=== PATIENT | female | born 1965 | race Caucasian/White ===

== ENCOUNTER 2018-01-20 14:57 | Emergency (ER) | payer SELFPAY ==
[2018-01-20] MEDS ORDERED: NORMAL SALINE 1000 ML 1,000 ML IV ONE (15:34)
[2018-01-20] MEDS ORDERED: IPRATROPIUM/ALBUTEROL 0.5-2.5 MG/3 ML AMPUL NEB ONE (15:35)
--- NOTE | 2018-01-20 15:36 | ER Document Report ---
ED Medical Screen (RME) - General Chief Complaint: Shortness Of Breath Stated Complaint: COUGH,DIARRHEA Time Seen by Provider: 01/20/18 15:34 Mode of Arrival: Wheelchair Information source: Patient, Relative TRAVEL OUTSIDE OF THE [place] IN LAST 30 DAYS: No - HPI Patient complains to provider of: coough, dehydration Onset: Yesterday - pt with onset of cough and diarrhea yessterday -- went to health clinic earlier today and sent here for low O2 saturations. Denies CP - Related Data Allergies/Adverse Reactions: acetaminophen [From Percocet] Allergy (Verified 01/20/18 15:04) adhesive tape Allergy (Verified 01/20/18 15:04) amoxicillin [From Augmentin] Allergy (Verified 01/20/18 15:04) aspirin Allergy (Verified 01/20/18 15:04) clavulanic acid [From Augmentin] Allergy (Verified 01/20/18 15:04) diazepam [From Valium] Allergy (Verified 01/20/18 15:04) iodine Allergy (Verified 01/20/18 15:04) latex Allergy (Verified 01/20/18 15:04) levofloxacin [From Levaquin] Allergy (Verified 01/20/18 15:04) midazolam [From Versed] Allergy (Verified 01/20/18 15:04) nitrofurantoin [From Macrobid] Allergy (Verified 01/20/18 15:04) oxycodone [From Percocet] Allergy (Verified 01/20/18 15:04) procaine [From Novocain] Allergy (Verified 01/20/18 15:04) promethazine [From Phenergan] Allergy (Verified 01/20/18 15:04) shellfish derived Allergy (Verified 01/20/18 15:04) Sulfa (Sulfonamide Antibiotics) Allergy (Verified 01/20/18 15:04) Physical Exam - Vital signs Vitals: Temp Pulse Resp BP Pulse Ox 97.8 F 86 20 130/63 H 88 L 01/20/18 15:06 01/20/18 15:06 01/20/18 15:06 01/20/18 15:06 01/20/18 15:06 Course - Vital Signs Vital signs: Temp Pulse Resp BP Pulse Ox 97.8 F 86 20 130/63 H 88 L 01/20/18 15:06 01/20/18 15:06 01/20/18 15:06 01/20/18 15:06 01/20/18 15:06
[2018-01-20 16:17] LABS: ABSOLUTE BASOPHILS # (AUTO) 0.1 10^3/uL (0.0-0.2); ABSOLUTE LYMPHOCYTES (AUTO) 2.3 10^3/uL (0.5-4.7); ABSOLUTE NEUT (AUTO) 7.7 10^3/uL (1.7-8.2); BASOPHILS % (AUTO) 0.6 % (0-2); EOSINOPHILS % (AUTO) 0.3 % (0-6); HEMATOCRIT 44.7 % (36.0-47.0); HEMOGLOBIN 15.3 g/dL (12.0-15.5); LYMPHOCYTES % (AUTO) 20.3 % (13-45); MEAN CORPUSCULAR HEMOGLOBIN 30.4 pg (27.0-33.4); MEAN CORPUSCULAR HGB CONC 34.3 g/dL (32.0-36.0); MEAN CORPUSCULAR VOLUME 88 fl (80-97); MONOCYTES % (AUTO) 8.8 % (3-13); PLATELET COUNT 294 10^3/uL (150-450); RED BLOOD COUNT 5.05 10^6/uL (3.72-5.28); RED CELL DISTRIBUTION WIDTH 13.4 % (11.5-14.0); TOTAL CELLS COUNTED % (AUTO) 100 %; WHITE BLOOD COUNT 11.1 10^3/uL (4.0-10.5)
[2018-01-20 16:29] LABS: ALANINE AMINOTRANSFERASE 11 U/L (9-52); ALBUMIN 4.3 g/dL (3.5-5.0); ALKALINE PHOSPHATASE 109 U/L (38-126); ANION GAP 12 (5-19); ASPARTATE AMINO TRANSFERASE 24 U/L (14-36); BILIRUBIN,DIRECT 0.3 mg/dL (0.0-0.4); BILIRUBIN,TOTAL 0.7 mg/dL (0.2-1.3); BLOOD UREA NITROGEN 5 mg/dL (7-20); CALCIUM 9.9 mg/dL (8.4-10.2); CARBON DIOXIDE 28 mmol/L (22-30); CHLORIDE 104 mmol/L (98-107); GLUCOSE 115 mg/dL (75-110); POTASSIUM 3.4 mmol/L (3.6-5.0); SODIUM 143.6 mmol/L (137-145)
--- NOTE | 2018-01-20 16:50 | RADIOLOGY REPORT (SQ) ---
EXAM DESCRIPTION: CHEST 2 VIEWS COMPLETED DATE/TIME: 01/20/2018 4:36 pm REASON FOR STUDY: SOB COMPARISON: None. EXAM PARAMETERS: NUMBER OF VIEWS: two views TECHNIQUE: Digital Frontal and Lateral radiographic views of the chest acquired. RADIATION DOSE: NA LIMITATIONS: none FINDINGS: LUNGS AND PLEURA: No opacities, masses or pneumothorax. No pleural effusion. MEDIASTINUM AND HILAR STRUCTURES: No masses or contour abnormalities. HEART AND VASCULAR STRUCTURES: Heart normal size. No evidence for failure. BONES: No acute findings. HARDWARE: None in the chest. OTHER: No other significant finding. IMPRESSION: NO ACUTE RADIOGRAPHIC FINDING IN THE CHEST. TECHNICAL DOCUMENTATION: JOB ID: [id number] [id number] [employer]- All Rights Reserved Reading location - IP/workstation name: [employer]
[2018-01-20] MEDS ORDERED: BENZONATATE 100 MG CAPSULE PO ONE (17:12)
[2018-01-20] MEDS ORDERED: ALBUTEROL SULFATE 0.083% NEB 2.5 MG/3 ML AMPUL NEB ONE (17:13)
[2018-01-20 17:18] LABS: LIPASE 34.3 U/L (23-300)
[2018-01-20 17:57] LABS: INTERNATIONAL RATION (INR) 0.94
[2018-01-20 17:58] LABS: PARTIAL THROMBOPLASTIN TIME 31.4 SEC (23.5-35.8)
[2018-01-20 18:23] LABS: D-DIMER < 0.27 ug/mL (0.00-0.50)
[2018-01-20] MEDS ORDERED: ALBUTEROL SULFATE HFA (90 MCG/PUFF) 8 GM MDI (1 MDI/ER DISP) IH ONE (18:47)
[2018-01-20] MEDS ORDERED: DOXYCYCLINE HYCLATE 100 MG TABLET PO ONE (18:47)
--- NOTE | 2018-01-20 18:52 | ER Document Report ---
ED General - General Chief Complaint: Shortness Of Breath Stated Complaint: COUGH,DIARRHEA Time Seen by Provider: 01/20/18 15:34 Mode of Arrival: Wheelchair TRAVEL OUTSIDE OF THE [place] IN LAST 30 DAYS: No - HPI Patient complains to provider of: Shortness of breath diarrhea Notes: Patient with recent travel from [place] to the area states cough feeling unwell diarrhea ongoing for the last 8 days. Patient denies any fevers or chills. Patient does have a history of smoking states that not smoking for the last 3 days. Patient states she has been smoking ever since she was 14. No formal diagnosis of COPD however states whenever she has this flare she normally receives antibiotics Tessalon Perles for her symptoms patient states she is allergic to multiple medications including steroids denies any history of DVT PE in the past. Denies any calf pain denies any leg pain at this time. Patient states clear sputum production. Patient was sent to the ER from a local urgent care because of a pulse ox reading of 88. Patient otherwise is returning from the bathroom upon my evaluation we are able to look the patient up to the SPO2 monitor which reads 90 with no oxygen. - Related Data Allergies/Adverse Reactions: adhesive tape Allergy (Verified 01/20/18 15:04) amoxicillin [From Augmentin] Allergy (Verified 01/20/18 15:04) aspirin Allergy (Verified 01/20/18 15:04) clavulanic acid [From Augmentin] Allergy (Verified 01/20/18 15:04) diazepam [From Valium] Allergy (Verified 01/20/18 15:04) iodine Allergy (Verified 01/20/18 15:04) latex Allergy (Verified 01/20/18 15:04) levofloxacin [From Levaquin] Allergy (Verified 01/20/18 15:04) midazolam [From Versed] Allergy (Verified 01/20/18 15:04) nitrofurantoin [From Macrobid] Allergy (Verified 01/20/18 15:04) oxycodone [From Percocet] Allergy (Verified 01/20/18 15:04) procaine [From Novocain] Allergy (Verified 01/20/18 15:04) promethazine [From Phenergan] Allergy (Verified 01/20/18 15:04) shellfish derived Allergy (Verified 01/20/18 15:04) Sulfa (Sulfonamide Antibiotics) Allergy (Verified 01/20/18 15:04) Tetanus Vaccines and Toxoid Allergy (Verified 01/20/18 15:45) tomato Allergy (Verified 01/20/18 15:47) steroids Allergy (Uncoded 01/20/18 15:44) vitamin c Allergy (Uncoded 01/20/18 15:45) Past Medical History - General Information source: Patient, Relative - Social History Smoking Status: Current Every Day Smoker Chew tobacco use (# tins/day): No Frequency of alcohol use: None Drug Abuse: None Family History: Reviewed & Not Pertinent Patient has suicidal ideation: No Patient has homicidal ideation: No Renal/ Medical History: Denies: Hx Peritoneal Dialysis Past Surgical History: Reports: Hx Abdominal Surgery - hernia repair, Hx Appendectomy, Hx Breast Surgery - biopsy, Hx Cholecystectomy, Hx Hysterectomy, Hx Orthopedic Surgery - l knee replacement/r knee surgery/ledt shoulder surgery , Hx Thyroid Surgery - hyperparathrriodectomy Review of Systems - Review of Systems Constitutional: No symptoms reported EENT: No symptoms reported Cardiovascular: No symptoms reported Respiratory: Cough, Short of breath, Sputum Gastrointestinal: No symptoms reported Genitourinary: No symptoms reported Female Genitourinary: No symptoms reported Musculoskeletal: No symptoms reported Skin: No symptoms reported Hematologic/Lymphatic: No symptoms reported Neurological/Psychological: No symptoms reported -: Yes All other systems reviewed and negative Physical Exam - Vital signs Vitals: Temp Pulse Resp BP Pulse Ox 97.8 F 86 20 130/63 H 88 L 01/20/18 15:06 01/20/18 15:06 01/20/18 15:06 01/20/18 15:06 01/20/18 15:06 Interpretation: Normal - General General appearance: Appears well, Alert - HEENT Head: Normocephalic, Atraumatic Eyes: Normal Pupils: PERRL - Respiratory Respiratory status: No respiratory distress Chest status: Nontender Breath sounds: Rhonchi, Wheezing Chest palpation: Normal - Cardiovascular Rhythm: Regular Heart sounds: Normal auscultation Murmur: No - Abdominal Inspection: Normal Distension: No distension Bowel sounds: Normal Tenderness: Nontender Organomegaly: No organomegaly - Back Back: Normal, Nontender - Extremities General upper extremity: Normal inspection, Nontender, Normal color, Normal ROM , Normal temperature General lower extremity: Normal inspection, Nontender, Normal color, Normal ROM , Normal temperature, Normal weight bearing. No: Akanksha's sign - Neurological Neuro grossly intact: Yes Cognition: Normal Orientation: AAOx4 [place] Coma Scale Eye Opening: Spontaneous Daniela Coma Scale Verbal: Oriented Daniela Coma Scale Motor: Obeys Commands [place] Coma Scale Total: 15 Speech: Normal Motor strength normal: LUE, RUE, LLE, RLE Sensory: Normal - Psychological Associated symptoms: Normal affect, Normal mood - Skin Skin Temperature: Warm Skin Moisture: Dry Skin Color: Normal Course - Re-evaluation Re-evalutation: 01/20/18 23:06 Laboratory studies not show any signs of cardiac damage d-dimer is negative slight white count. Patient chest x-rays not show any consolidations consistent with pneumonia. More likely patient has underlying bronchitis with sputum production will start the patient on doxycycline Tessalon Perles as the patient is allergic to all steroids steroids will be held at this time. Patient 's pulse ox remains between 90-93 more likely due to the patient's significant smoking history this is her norm. Patient was educated to stop smoking honey for cough patient states understanding she will be discharged home. - Vital Signs Vital signs: Temp Pulse Resp BP Pulse Ox 98 F 83 13 133/68 H 90 L 01/20/18 19:12 01/20/18 16:28 01/20/18 18:50 01/20/18 18:51 01/20/18 18:51 - Laboratory Result Diagrams: 01/20/18 15:45 01/20/18 15:45 Laboratory results interpreted by me: 01/20/18 01/20/18 01/20/18 15:45 15:45 17:21 WBC 11.1 H Potassium 3.4 L BUN 5 L Glucose 115 H Urine Blood MODERATE H Discharge - Discharge Clinical Impression: Bronchitis Diarrhea Qualifiers: Diarrhea type: unspecified type Qualified Code(s): R19.7 - Diarrhea, unspecified Condition: Good Disposition: HOME, SELF-CARE Instructions: Bronchitis With Bronchospasm (Wheezing) ([facility]), Diarrhea, Nonspecific ([facility]), Doxycycline ([facility]) Additional Instructions: Follow-up with your primary care physician return to the ER symptoms worsen. Please take medications as prescribed I recommend using your inhaler 2 puffs every 4 hours as needed for any shortness of breath. Prescriptions: Benzonatate [Tessalon Perle 100 mg Capsule] 100 mg PO Q8HP PRN #40 cap PRN Reason: Albuterol Sulfate [Proair HFA Inhalation Aerosol 8.5 gm MDI] 2 puff IH Q4H PRN # 1 mdi PRN Reason: Doxycycline Hyclate 100 mg PO BID #14 capsule Forms: Return to Work
[2018-01-20 19:00] LABS: APPEARANCE,URINE CLEAR; BILIRUBIN,URINE NEGATIVE (NEGATIVE); COLOR,URINE STRAW; GLUCOSE, URINE NEGATIVE (NEGATIVE); KETONES,URINE NEGATIVE (NEGATIVE); LEUKOCYTE ESTERASE,URINE NEGATIVE (NEGATIVE); NITRITE,URINE NEGATIVE (NEGATIVE); PROTEIN,URINE NEGATIVE (NEGATIVE); URINE SPECIFIC GRAVITY 1.004; UROBILINOGEN,URINE NEGATIVE mg/dL (<2.0)
[2018-01-20 19:11] VITALS: BP 133/68
== END 2018-01-20 19:12 | disposition home or self-care (01) ==
LOC: ER 14:57
DX: J40 Bronchitis, not specified as acute or chronic (principal); R06.02 Shortness of breath; R19.7 Diarrhea, unspecified; R05 Cough; R06.2 Wheezing; F17.200 Nicotine dependence, unspecified, uncomplicated; Z91.048 Other nonmedicinal substance allergy status; Z88.0 Allergy status to penicillin; Z88.6 Allergy status to analgesic agent; Z91.040 Latex allergy status; Z88.8 Allergy status to other drugs, medicaments and biological substances; Z88.1 Allergy status to other antibiotic agents; Z88.5 Allergy status to narcotic agent; Z88.4 Allergy status to anesthetic agent; Z91.013 Allergy to seafood; Z88.2 Allergy status to sulfonamides; Z91.018 Allergy to other foods; Z88.7 Allergy status to serum and vaccine
CPT/HCPCS: 94640 ×2; 99285; 96360; 36415; 83690; 83735; 85025; 85610; 85730; 80053; 81001; 85379; 71046; J7030; J3490; J7620